=== PATIENT | female | born 1960 | race Caucasian/White ===

== ENCOUNTER 2016-07-03 23:30 | Emergency (ER) | payer SELFPAY ==
[~2016-07-03] VITALS: Ht 170.2 cm; Wt 85.0 kg
[~2016-07-03 23:30] MED LIST: HYDR-4011 PO
[2016-07-03 23:36] VITALS: Ht 170.2 cm; Wt 85.0 kg
--- OUTSIDE RECORDS SUMMARY | 2016-07-03 23:37 | XMS REPORT | Summary of Care ---
Author Author Johann Handley M.D. Organization Unknown Address Unknown Phone Unavailable Care Team Providers Care Roaster Helper Name Role Phone Francesco Handley M.D. Unavailable Unavailable Frank Coleman Unavailable Unavailable Unavailable Unavailable Functional Status Name Dates Details Functional status health issues are not documented Status: Name Dates Details Cognitive status health issues are not documented Status: Problems Name Dates Details TMJ (temporomandibular joint syndrome) (524.60, M26.609) Status: Active Bruxism (306.8, F45.8) Status: Active Anxiety and depression (300.4, F41.8) Status: Active Dental infection (522.4, K04.7) Status: Active Thoracic back pain (724.1, M54.6) Status: Active Colon cancer screening (V76.51, Z12.11) Status: Active Myalgia (729.1, M79.1) Status: Active Periodic limb movement disorder (PLMD) (327.51, G47.61) Status: Active Asthmatic bronchitis (493.90, J45.909) Status: Active Bilateral leg and foot pain (729.5, M79.604) Status: Active Spinal stenosis (724.00, M48.00) Status: Active Cervical pain (neck) (723.1, M54.2) Status: Active Degenerative disc disease, cervical (722.4, M50.30) Status: Active Peripheral neuropathy (356.9, G62.9) Status: Active Spondylolisthesis (756.12, M43.10) Status: Active Wrist pain, chronic, right (719.43, M25.531) Status: Active Degenerative disc disease, 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 *must last 30 days* Quantity: 30 Johann Handley M.D. * Start 28-Dec-2013 Active Lortab 10-325 MG Oral Tablet Take 1or 2 tabs PO every 4-6 hrs prn*max 5 per day*Must last [address] Handley * Quantity: 150 Refills: 0 Johann Handley M.D. * Start 29-Jul-2016 Active Allergies and Adverse Reactions Name Dates Details No Known Drug Allergies (Allergy) Status: Active Past Medical History Name Dates Details History of Leg numbness (782.0, R20.0) Status: Resolved History of migraine (V12.49, Z86.69) Status: Resolved History of Wears glasses (V49.89, Z97.3) Status: Resolved Procedures Procedure Dates Details History of Knee Arthroscopy Procedures not documented Immunization Name Dates Details Immunizations not documented Family History Name Dates Details No pertinent family history Status: Active Name Dates Details Family history of Status: Active Social History Name Dates Details - Status: Name Dates Details Former smoker Vital Signs Date Test Result Details No Known Vitals to report Results Date Description Value Details Results not documented Plan of Care Name Dates Details Planned Observations Planned Goals not documented Planned Encounters Appointment; Provider: Johann Handley M.D. On 23-Aug-2016 08:15 Planned Medications Lortab 10-325 MG Oral Tablet Ordered: 29-Jul-2016 Active Instructions Name Dates Details Instructions not documented Encounters Appointment; Johann Handley M.D. Encounter Diagnosis: Problem not documented On 26-Apr-2016 09:15 Appointment; Johann Handley M.D. Encounter Diagnosis: Problem not documented On 23-Feb-2016 10:00 Appointment; Johann Handley M.D. Encounter Diagnosis: Problem not documented On 29-Dec-2015 09:30 Appointment; Johann Handley M.D. Encounter Diagnosis: Problem not documented On 13:00 Appointment; Johann Handley M.D. Encounter Diagnosis: Problem not documented On 08-Sep-2015 13:30 Appointment; Johann Handley M.D. Encounter Diagnosis: Problem not documented On 13-Jul-2015 14:00 Appointment; Johann Handley M.D. Encounter Diagnosis: Problem not documented On 20-Apr-2015 11:15 Appointment; Johann Handley M.D. Encounter Diagnosis: Problem not documented On 15-Feb-2015 15:00 Appointment; Swathi Mckeon P.A. Encounter Diagnosis: Problem not documented On 14-Dec-2014 14:45 Appointment; Johann Handley M.D. Encounter Diagnosis: Problem not documented On 09-Sep-2014 10:15 Appointment; Siva Benton M.D. Encounter Diagnosis: Problem not documented On 17-Aug-2014 16:00 Appointment; Swathi Mckeon, PTorin Encounter Diagnosis: Problem not documented On 29-Jul-2014 10:00
--- OUTSIDE RECORDS SUMMARY | 2016-07-03 23:44 | XMS REPORT | Continuity of Care Document ---
Author Author [facility] Organization [facility] Address Unknown Phone Unavailable Support Name Relationship Address Phone YG JOVEL MD Caregiver [address] [place] [id number] Unavailable TANISHA WILLETT Next Of Kin [address] [place] [address] Insurance Providers Guarantor BrennonXavierRoyal Address [address] [place] [address] Email [email or web address] [email or web address] Workers Compensation Subscriber's Name Royal Willett Relationship 18 Self Chief Complaint and Reason for Visit Chief Complaint Laceration Reason for Visit Laceration of finger Problems Past Problems Medical Problem Onset Date Laceration of finger Unknown Medications Current Home Medications Medication Dose Units Route Directions Days Qty Instructions Start Date Hydrocodone/Acetaminophen (Lortab 10-325 Mg Tablet) 1 Each Tablet 1 Tab Oral Every 4-6 Hours as needed for Pain 06/25/16 Social History Query Response Start Date Stop Date Smoking Status Current every day smoker Hospital Discharge Instructions No hospital discharge instructions. Plan of Care Discharge Date 06/26/16 12:04am Disposition 01 DISCHARGED HOME, SELF-CARE Condition at Discharge Improved Instructions/Education Provided Finger Laceration (ED) Prescriptions See Medication Section Additional Instructions/Education Keep finger clean and dry. Remove sutures in 7-10 days. Functional Status No functional status results. Allergies, Adverse Reactions, Alerts No known allergies. Immunizations Immunization Event Date Type Not Given Reason Dose Number Lot Number [employer] In[employer] VIS Given Tdap 06/25/16 Administered 1 [id number] MCE-5 Development 06/08/14 Query Response on File Recorded Date/Time Tdap Vaccine Hx 06/25/2016 06/25/16 11:30pm Vital Signs Acute Vital Signs Vital Response Date/Time Temperature (Fahrenheit) 98.2 deg F (96.8 - 99.1) 06/26/2016 12:04am Temperature (Calculated Celsius) 36.23165 degrees C (36.0 - 37.3) 06/26/2016 12:04am Pulse Rate (adult) 78 bpm (60 - 100) 06/26/2016 12:04am Respiratory Rate 14 breaths/min (10 - 20) 06/26/2016 12:04am O2 Sat by Pulse Oximetry 98 % (90 - 100) 06/26/2016 12:04am Blood Pressure 131/84 mm Hg 06/26/2016 12:04am Height (Feet) 5 feet 06/25/2016 10:56pm Height (Inches) 7.00 inches 06/25/2016 10:56pm Weight (Kilograms) 87.500 kg 06/25/2016 10:56pm Body Mass Index (BMI) 30.0 06/25/2016 10:56pm Results No known relevant diagnostic tests, laboratory data and/or discharge summary. Procedures No known history of procedures. Encounters Encounter Location Arrival/Admit Date Discharge/Depart Date Attending Provider Departed Emergency Room [facility] 06/25/16 10:50pm 06/26/16 12: 04am YG JOVEL MD Recent Diagnosis
[2016-07-04] MEDS ORDERED: BACITRACIN TOPICAL OINTMENT 15 G TUBE TOP ONE
--- NOTE | 2016-07-04 00:02 | ERPDOC ---
Departure Disposition Decision Date: Jul 04, 2016 Disposition Decision Time: 00:00 Disposition: 01 DISCHARGED HOME, SELF-CARE Impression Impression Impression: Primary Impression: Visit for suture removal Severity: Mild Condition: Improved Seen By: Physician only Patient Instructions: Laceration (ED) Problems/Meds/Labs Reviewed?: Yes Medications reviewed and manag: Yes Additional Instructions: Keep clean and dry for 2 days. Follow-up as needed. Follow up care ordered?: Yes Mental Status: Alert, Oriented HPI General Chief Complaint: Laceration Stated Complaint: SUTURE REMOVAL Time Seen by Provider: 23:57 HPI Wound Recheck Initial Comments 56-year-old female presents for follow-up on laceration. She had 3 sutures placed, 8 days ago. Wound is healed well concerns, she would like to have the sutures removed. Allergies: Coded Allergies: No Known Allergies (Unverified , 06/25/16) Past History Patient Surgical History Negative Social History Substance Use Type: does not use Current Occupational Status: employed Review of Systems Unable to Obtain Comments All negative except for skin, see history of present illness Exam General Height (Feet): 5 Height (Inches): 7.00 Integumentary (brief) Comments Index finger, small laceration with 3 sutures. Neurologic RN Documented [facility] Eye Opening: Verbal: Motor: Total: Differential Diagnoses Considering: Laceration Progress Results/Orders Orders Procedure Category Date Status Time Bacitracin PHA 07/04/16 In Process (Bacitracin) 00:00 Progress Progress Suture removed 3. Excellent skin approximation, no bleeding. Antibiotic ointment and bandage applied, follow-up as needed. YG JOVEL MD Jul 04, 2016 00:02
[2016-07-04] MEDS ORDERED: NEOMYCIN/POLYM/BACITR OINT PACKET TOP ONE (00:15)
[2016-07-04 00:27] VITALS: BP 134/66; PULSE 64; RESP 16; TEMP 98.6; O2SAT 98
--- NOTE | 2016-07-04 00:27 | NUR ---
DEPART PT IS DISCHARGED AT THIS TIME, INSTRUCTIONS ARE REVIEWED AND UNDERSTANDING IS VOICED.
== END 2016-07-04 00:27 | disposition home or self-care (01) ==
LOC: ED 23:30
DX: S61.211D Laceration without foreign body of left index finger without damage to nail, subsequent encounter (principal); W26.0XXD Contact with knife, subsequent encounter; Y93.9 Activity, unspecified; Y92.511 Restaurant or cafe as the place of occurrence of the external cause; Y99.0 Civilian activity done for income or pay